=== PATIENT | female | born 1960 | race Caucasian/White ===

== ENCOUNTER 2019-03-10 10:19 | Day surgery (SDC) | payer BC ==
[~2019-03-10] VITALS: Ht 152.4 cm; Wt 56.1 kg
[~2019-03-10 10:19] MED LIST: IBUP-1541 PO; MULTIVITAMIN
[2019-03-10 10:56] VITALS: Ht 152.4 cm; Wt 56.1 kg
[2019-03-10 12:05] VITALS: BP 149/60; PULSE 59; RESP 18
[2019-03-10] MEDS ORDERED: MIDAZOLAM 1 MG/ML 2 ML INJ ONE ×2 (12:43)
[2019-03-10] MEDS ORDERED: FENTAnyl 50 MCG/ML VIAL ONE (12:43)
[2019-03-10 12:45] VITALS: BP 120/61; PULSE 57; RESP 16
[2019-03-10 13:00] VITALS: BP 117/63; PULSE 54; RESP 19
--- NOTE | 2019-03-11 07:02 | CONS ---
DATE OF ADMISSION: 03/10/2019 DATE OF CONSULTATION: PATIET NAME: JENNIFER MIRANDA TYPE OF CONSULTATION: Preoperative gastroenterology. I thank you very much for this kind referral. HISTORY OF PRESENT ILLNESS: Ms. Jennifer Miranda is a 58-year-old female patient who has been referr ed to me for further evaluation of positive occult blood in stool. No past history of colon neoplasm . Appetite is good, no weight loss. No upper abdominal pain. Not on nonsteroidal anti-inflammatory agents. No history of gallstones or liver disease. Not a hypertensive or diabetic. No heart disea se, lung problem or kidney disease. SOCIAL HISTORY: Nonsmoker. No alcohol abuse. FAMILY HISTORY: No family history of gastrointestinal tract neoplasm. ALLERGIES: ALLERGIC TO PENICILLIN AND NAPROXEN. MEDICATIONS: None. PHYSICAL EXAMINATION: VITAL SIGNS: She is 5 feet tall and weighs 126 pounds. HEART: Normal heart sounds. LUNGS: Clear. ABDOMEN: Soft, no masses. Normal bowel sounds. NEUROLOGIC: Normal neurological exam. IMPRESSION: 1. Positive occult blood in stool. 2. ALLERGY TO PENICILLIN AND NAPROXEN. PLAN: Colonoscopy for further evaluation. The procedure and possible complications are well explained to the patient. She understands and cons ents to the procedure. I thank you once again. With warmest personal regards, Dictated By: MATTHEW ADAMS/LAURYN Conf#: [id number] DID#: [id number]
== END 2019-03-10 14:38 | disposition home or self-care (01) ==
LOC: GIL 10:19
PROVIDERS: ATTEND Internal Medicine Gastroenterology
DX: K92.1 Melena (principal); K64.8 Other hemorrhoids; K57.30 Diverticulosis of large intestine without perforation or abscess without bleeding
CPT/HCPCS: 43239; J2250; J3010; Z7610